=== PATIENT | female | born 1960 ===

== ENCOUNTER 2018-08-26 08:32 | Emergency (ER) | payer OTHER ==
[2018-08-26 08:52] VITALS: RESP 16
[2018-08-26] MEDS ORDERED: Lidocaine 5% Patch TD STA (09:01)
--- NOTE | 2018-08-26 09:08 | C.PDOC ---
History Of Present Illness 57 y/o female pt with hx of DM, HTN, HLD, chronic back pain and chronic shoulder pain presents to the ER c/o chronic back pain for x2 days. The back pain radiates down to her right leg. Associated symptoms includes dizziness, nausea, unable to sleep and changes in vision. Pt reports she was seen by Dr. Michelle Lloyd x2 days ago and was given an injection on her back. Pt reportedly took percocet but stops because it made her vomit. Pt does not know the names of her other medications. Time Seen by Provider: 08/26/18 08:50 Chief Complaint (Nursing): Dizziness/Lightheaded History Per: Patient History/Exam Limitations: no limitations Onset/Duration Of Symptoms: Days (x2) Current Symptoms Are (Timing): Still Present Past Medical History Reviewed: Historical Data, Nursing Documentation, Vital Signs Vital Signs: Last Vital Signs Temp 98.4 F 08/26/18 08:52 Pulse 92 H 08/26/18 08:52 Resp 16 08/26/18 08:52 BP 145/77 08/26/18 08:52 Pulse Ox 98 08/26/18 08:52 - Medical History PMH: Asthma (NEVER HAD ATTACK), HTN, Hypercholesterolemia Family History: States: No Known Family Hx - Social History Hx Alcohol Use: No Hx Substance Use: No - Immunization History Hx Tetanus Toxoid Vaccination: No Hx Influenza Vaccination: No Hx Pneumococcal Vaccination: No Review Of Systems Except As Marked, All Systems Reviewed And Found Negative. Constitutional: Positive for: Other (unable to sleep ) Eyes: Positive for: Vision Change Gastrointestinal: Positive for: Nausea Musculoskeletal: Positive for: Shoulder Pain (chronic ), Back Pain (chronic ), Leg Pain (right; radiated from back pain ) Neurological: Positive for: Dizziness Physical Exam - Physical Exam Appears: Non-toxic, No Acute Distress Skin: Warm, Dry Head: Normacephalic Eye(s): bilateral: Normal Inspection, EOMI Oral Mucosa: Moist Chest: Symmetrical Cardiovascular: Rhythm Regular Respiratory: Normal Breath Sounds Gastrointestinal/Abdominal: Soft, No Tenderness Back: No CVA Tenderness, No Vertebral Tenderness, No Paraspinal Tenderness Extremity: No Normal ROM (decreased ROM shoulder due to pain ), No Tenderness, Capillary Refill (<2 sec), No Deformity, No Swelling Pulses: Left Radial: Normal, Right Radial: Normal Neurological/Psych: Oriented x3, Normal Speech, Normal Cognition, Normal Motor, Normal Sensation, Normal Reflexes ED Course And Treatment O2 Sat by Pulse Oximetry: 98 (RA) Pulse Ox Interpretation: Normal Medical Decision Making Medical Decision Making: Plans: -- Glucose, POC -- flexeril -- lidoderm -- motrin -- tylenol -- prednisone On re-evaluation patient is sleeping comfortably. When woken up, she complains of pain. States she did not receive an injections and is requesting one. States she was told by PMD to f/u with pain management Disposition Counseled Patient/Family Regarding: Diagnosis, Need For Followup, Rx Given - Disposition Referrals: Vidal Henderson MD [Staff Provider] - Disposition: HOME/ ROUTINE Disposition Time: 11:50 Condition: STABLE Prescriptions: Cyclobenzaprine [Cyclobenzaprine HCl] 10 mg PO TID #15 tab Ibuprofen [Motrin] 600 mg PO TID #15 tab Instructions: Radiculopathy (DC) Forms: [employer] (Thai), Gen Discharge Inst Thai - POA Present On Arrival: None - Clinical Impression Clinical Impression: Sciatica - Scribe Statement The provider has reviewed the documentation as recorded by the Leo Dyer Do Provider Attestation: All medical record entries made by the Scribe were at my direction and personally dictated by me. I have reviewed the chart and agree that the record accurately reflects my personal performance of the history, physical exam, medical decision making, and the department course for this patient. I have also personally directed, reviewed, and agree with the discharge instructions and disposition.
[2018-08-26] MEDS ORDERED: Lidocaine 5% Patch TD ONE (09:12)
[2018-08-26 12:13] VITALS: BP 116/74; PULSE 85; TEMP 98.6; O2SAT 100
== END 2018-08-26 12:12 | disposition home or self-care (01) ==
LOC: C.ER 08:32
DX: M54.30 Sciatica, unspecified side (principal)